=== PATIENT | female | born 1980 | race African-American/Black ===

== ENCOUNTER 2017-04-23 17:10 | Emergency (ER) | payer BC, MEDICAID, OTHER | END 2017-04-23 19:43 | disposition home or self-care (01) | LOC: ERS 17:10 | DX: L72.3 Sebaceous cyst (principal); Z87.891 Personal history of nicotine dependence | CPT/HCPCS: 99283 ==

== ENCOUNTER 2017-12-04 05:34 | Inpatient (IN) | payer OTHER ==
[~2017-12-04 05:34] MED LIST: Bicitra 30 ML UDCUP PO SCH; CEFAZOLIN/Water 2 GM/20 ML SYRINGE SLOW IVP SCH; Ondansetron HCl/PF 4 MG/2 ML Vial IVP PRN; Promethazine HCl 25 MG/ML VIAL IM PRN
[2017-12-04 05:59] VITALS: BMI 42.0
[2017-12-04] MEDS: Lactated Ringer's 1,000 ML IV SCH ×3 (06:20→15:19)
[2017-12-04 06:34] LABS: Hemoglobin 12.4 g/dL (12.0-16.0); Mean Corpuscular HGB CONC 32.9 g/dL (32.0-36.0); Mean Corpuscular Hemoglobin 24.6 pg (27.0-31.0); Mean Corpuscular Volume 74.9 fL (78.0-98.0); Mean Platelet Volume 10.2 fL (7.4-10.4); Platelet Count 190 thou/uL (130-400); RBC Distribution Width 12.9 % (11.5-14.5); Red Blood Cell (RBC) Count 5.05 mill/uL (4.20-5.40); White Blood Cell (WBC) Count 7.6 thou/uL (4.8-10.8)
[2017-12-04] MEDS ORDERED: Fentanyl 100 MCG/2 ML VIAL ONE (07:02)
[2017-12-04] MEDS ORDERED: Oxytocin 10 UNITS/ML VIAL ONE (07:02)
[2017-12-04 07:03] LABS: HBSAg Index 0.22 S/CO (0-0.99); Hep B Surf Ag Non-Reactive S/CO (NonReactive)
[2017-12-04] MEDS ORDERED: Morphine PF 1 MG/ML SYR ONE (07:03)
[2017-12-04] MEDS ORDERED: Lidocaine 1% PF 5 ML VIAL ONE (07:04)
[2017-12-04] MEDS ORDERED: PHENYLEPHRINE-NS 100 MCG/ML 10 ML SYRINGE ONE (07:04)
[2017-12-04] MEDS ORDERED: ePHEDrine/0.9% NaCl/PF SYRINGE 50 mg/10 ml ONE (07:04)
[2017-12-04] MEDS ORDERED: Ketorolac Tromethamine 30 MG/ML VIAL ONE (07:05)
[2017-12-04] MEDS ORDERED: Bupivacaine 0.75% W/DEXTROSE 8.25% 2 ML AMP ONE (07:09)
[2017-12-04 08:11] LABS: Syphilis Antibody Nonreactive (Nonreactive)
--- NOTE | 2017-12-04 08:44 | PDOC.EVN ---
Event Note - Event Note Event Note: CS Assist note (Negative Restorer #2): I arrived medical consultant at 0800 to the L&D unit to find Dr Alexandra (my partner) in the OR in L&D assisting Dr Chang. I scrubbed him out at 0815. [facility] already closed the hysterectomy in one layer. I assisted with hysterotomy oversew until homeostasis observed. I remained until fascial closure. I closed the patient's left fascial angle towrads the midline. Please see OP NOTE by Dr Chang.
[2017-12-04] MEDS ORDERED: Ondansetron HCl/PF 4 MG/2 ML Vial IVP PRN ×2 (08:47→14:48)
[2017-12-04] MEDS ORDERED: Meperidine HCl/PF 25 MG/ML VIAL SLOW IVP PRN (08:47)
[2017-12-04] MEDS ORDERED: HYDROmorphone 2 MG/ML VIAL SLOW IVP PRN (08:47)
[2017-12-04] MEDS ORDERED: Bisacodyl 10 MG SUPP PR PRN (08:50)
[2017-12-04] MEDS ORDERED: HYDROcodone/Acetaminophen 5/325 mg Tablet PO PRN ×2 (08:50)
[2017-12-04] MEDS ORDERED: Adacel (T-DAP) 0.5 ML VIAL IM ONE (08:50)
[2017-12-04] MEDS ORDERED: Misoprostol 200 MCG TAB PR PRN (08:50)
[2017-12-04] MEDS ORDERED: Zolpidem Tartrate 5 MG TAB PO PRN (08:50)
[2017-12-04] MEDS ORDERED: NS / Oxytocin 40 units/1000ml 1,000 ML IV SCH (09:00)
[2017-12-04] MEDS ORDERED: Ketorolac Tromethamine 30 MG/ML VIAL IVP SCH (09:00)
[2017-12-04] MEDS ORDERED: Meperidine HCl/PF 25 MG/ML VIAL ONE (10:18)
[2017-12-04] MEDS ORDERED: Ibuprofen 800 MG TAB PO SCH (14:00)
[2017-12-04] MEDS ORDERED: Promethazine HCl 25 MG SUPP PR PRN (14:48)
[2017-12-04] MEDS ORDERED: diphenhydrAMINE 50 MG/ML VIAL IVP PRN (14:48)
[2017-12-04] MEDS ORDERED: Naloxone HCl 0.4 mg/ml Vial IV PRN (14:48)
[2017-12-04] MEDS ORDERED: Promethazine HCl 25 MG/ML VIAL IM PRN (14:48)
[2017-12-04] MEDS ORDERED: Naloxone HCl 0.4 mg/ml Vial IVP PRN ×2 (14:48)
[2017-12-04] MEDS ORDERED: Eucerin (Mineral Oil/Petrolatum,White) 30 gm Jar TOP PRN (14:48)
[2017-12-04] MEDS ORDERED: Communication Order-Pharmacy FS SCH (15:00)
[2017-12-04] MEDS: Ketorolac Tromethamine 30 MG/ML VIAL IVP PRN (15:14)
[2017-12-04] MEDS: Prenatal Vitamin 1 TAB PO SCH (15:15)
[2017-12-04] MEDS: Simethicone Chewable 80 MG TAB PO PRN (15:16)
[2017-12-04] MEDS: Docusate Calcium (SURFAK) 240 MG CAP PO SCH (15:16)
--- NOTE | 2017-12-04 21:25 | OP ---
DATE OF PROCEDURE: 12/04/2017 PREOPERATIVE DIAGNOSES: 1. A 37-year-old female, G4, P3, 39-40 weeks gestation, prior section. 2. For repeat section. SURGEON: Leslie Chang M.D. [facility] SURGEON: Jhony Alexandra M.D. and assisting by Dr. Doug Pichardo after delivery and hysterotomy closure. PROCEDURES: 1. Repeat low transverse section. 2. Adhesiolysis. ANESTHESIA: Spinal block. QUANTITATIVE BLOOD LOSS: 885 mL FINDINGS: 1. Vigorous female , vertex presentation, clear amniotic fluid noted. weight 7 pounds 2 ounces, Apgars 8 and 9. 2. Clear urine present in Hess catheter post procedure. DISPOSITION: To the recovery room, stable. COUNTS: Correct x2. DESCRIPTION OF OPERATIVE PROCEDURE: The patient previously received informed consent in regard to james rgery. She was taken back to the operating room where she received a spinal block without complicati ons. She was then placed in supine position, prepped and draped in usual sterile fashion. Hess cat heter and PlexiPulses had been placed. At this time, a Pfannenstiel incision was made through the pr evious scar site and was carried down to the fascia. Fascia was nicked in midline. Fascial incision was extended bilaterally using curved Layton scissors. She did have significant scarring from her pre vious 3 sections and sharp dissection of the rectus fascia both superiorly and inferiorly wa s carried out carefully. The rectus belly midline was identified and entry up high towards the umbil icus region was carried out. This incision was then extended via stretching and with a layering Layton scissors. At this time, the Hebert O retractor was placed. The bladder flap was well past the plan owen intended hysterotomy site. Therefore, hysterotomy site was carried out above the previous bladde r flap site. The hysterotomy incision was then extended via finger fractionation. In addition, the bandage scissors increased the size of the hysterotomy incision due to the thickness of the uterine m uscle wall. The baby's amniotic bag was ruptured, clear amniotic fluid was noted. The baby was deli tabatha in the vertex presentation. Mouth and nares were bulb suctioned on the abdomen. Cord was doub ly clamped and cut. The baby was handed to the pediatric nurse practitioner in attendance. Usual co rd blood was obtained. Placenta was then manually extracted. The uterus was then curetted of any re maining placental fragments with dry laparotomy sponge. The hysterotomy edges were grasped with two ring forceps at the angles and then in the midline of the lower inferior edge of the hysterotomy inci hector. Hysterotomy incision was then closed in running locking fashion with Monocryl sutures x2, doub le layer. An additional [id number] suture with 0 chromic was placed at the angle on the right w here the bandage scissors have extended the incision. Hemostasis was achieved. The Hebert O retract or was then removed and the rectus muscle bellies were inspected. Hemostasis confirmed. A fish styl e valve retractor was placed to help improve the operative field site for assisting closure of the fa scia. The fascia was then closed starting from the right angle with 0 PDS suture in running continuo us fashion. Once we got past the midline, the fish retractor was removed and then the fascial incision was then secured and it was oversewed and closed with running 0 PDS suture, which met in the midline and this was then tied securing fascial closure. The subcutaneous tissue was irrigated and noted be hemostatic and was reapproximated with 2-0 chromic suture. The skin was then closed with st aples. Surgery was terminated and no anesthetic or surgical complications occurred.
[2017-12-05] MEDS: Ketorolac Tromethamine 30 MG/ML VIAL IVP PRN ×2 (02:21→09:03)
[2017-12-05] MEDS: Docusate Calcium (SURFAK) 240 MG CAP PO SCH ×3 (02:25→21:06)
[2017-12-05] MEDS: diphenhydrAMINE 25 MG CAP PO PRN (02:34)
[2017-12-05] MEDS ORDERED: HYDROcodone/Acetaminophen 5/325 mg Tablet PO PRN (03:00)
[2017-12-05] MEDS: Simethicone Chewable 80 MG TAB PO PRN (03:02)
[2017-12-05 06:09] LABS: Hemoglobin 10.3 g/dL (12.0-16.0); Mean Corpuscular HGB CONC 33.2 g/dL (32.0-36.0); Mean Corpuscular Volume 75.1 fL (78.0-98.0); Mean Platelet Volume 9.4 fL (7.4-10.4); Platelet Count 157 thou/uL (130-400); RBC Distribution Width 12.7 % (11.5-14.5); Red Blood Cell (RBC) Count 4.11 mill/uL (4.20-5.40)
--- NOTE | 2017-12-05 07:54 | PDOC.PP ---
Post Progress Note Post Day #: 1 PO intake tolerated: yes Flatus: yes Ambulation: yes Vital Signs (12 hours) Temp Pulse Resp BP 12/05/17 04:00 98.5 F 93 20 12/05/17 00:00 98.5 F 93 20 12/04/17 20:00 98.5 F 91 20 109/61 Weight Weight 230 lb - Physical Examination Skin: CS incision dry & intact Result Diagrams: 12/05/17 05:27 Additional Labs: Post Labs Blood Type O POSITIVE 12/04/17 06:21 Hep Bs Antigen Non-Reactive S/CO (NonReactive) 12/04/17 06:21 - Assessment/Plan Post op day 1 from repeat c/s #4.. Hemodynamically stable. Advance activity/ diet. Possible d/c 12/06...Jossie out post op day 7 in my office.
[2017-12-05] MEDS: Prenatal Vitamin 1 TAB PO SCH (09:03)
[2017-12-05] MEDS: HYDROcodone/Acetaminophen 5/325 mg Tablet PO PRN ×2 (10:11→21:07)
[2017-12-05] MEDS: Ibuprofen 800 MG TAB PO SCH ×2 (15:27→21:08)
[2017-12-05] MEDS ORDERED: Ibuprofen 800 MG TAB PO SCH (22:00)
[2017-12-06] MEDS: diphenhydrAMINE 25 MG CAP PO PRN (00:57)
[2017-12-06] MEDS: HYDROcodone/Acetaminophen 5/325 mg Tablet PO PRN (06:05)
[2017-12-06] MEDS: Ibuprofen 800 MG TAB PO SCH ×2 (06:07→13:55)
[2017-12-06] MEDS: Simethicone Chewable 80 MG TAB PO PRN (06:10)
[2017-12-06] MEDS ORDERED: HYDROcodone/Acetaminophen 7.5/325 mg Tablet PO PRN (07:48)
--- NOTE | 2017-12-06 08:00 | PRG ---
DATE OF SERVICE: 12/06/2017. SUBJECTIVE: The patient is postoperative day #2 status post a repeat by her primary physic ana maria, Dr. Leslie Chang. Today, she reports that her pain medications have not been giving her adequ ate control and she feels like she is still having severe pain on her hydrocodone 5 mg to 10 mg q.4 h ours as needed for pain. She otherwise is tolerating p.o., voiding on her own, having decreased loch ia and is ambulating. OBJECTIVE: VITAL SIGNS: Currently, blood pressure is 129/60, temperature 98.6, pulse 97, respiratory rate of 20 . GENERAL: She appears to be in some distress, but not acute. She appears to be alert and oriented, c ooperative and pleasant to interact with. HEENT: Head is normocephalic, atraumatic. ABDOMEN: Fundus is firm, tender. Incision is clean, dry, and intact and soft. EXTREMITIES: Nontender and nonedematous. ASSESSMENT AND PLAN: The patient is a 37-year-old female postop day #2 status post a repeat C-sectio n with less than adequately controlled pain on her current pain regimen. I have increased her hydroc odone to 7.5 and we will see how that manages her pain over the next 24 hours. Anticipate discharge tomorrow.
[2017-12-06 09:04] VITALS: BP 115/71; TEMP 97.8
[2017-12-06] MEDS: Docusate Calcium (SURFAK) 240 MG CAP PO SCH (09:08)
[2017-12-06] MEDS: Prenatal Vitamin 1 TAB PO SCH (09:08)
[2017-12-06] MEDS: HYDROcodone/Acetaminophen 7.5/325 mg Tablet PO PRN ×3 (09:43→17:32)
--- NOTE | 2017-12-06 13:02 | PDOC.PP ---
Post Progress Note Post Day #: 2 PO intake tolerated: yes Flatus: yes Ambulation: yes Vital Signs (12 hours) Temp Pulse Resp BP 12/06/17 09:03 97.8 F 78 20 115/71 12/06/17 08:05 97.8 F 78 20 Weight Weight 230 lb Result Diagrams: 12/05/17 05:27 Additional Labs: Post Labs Blood Type O POSITIVE 12/04/17 06:21 Hep Bs Antigen Non-Reactive S/CO (NonReactive) 12/04/17 06:21 - Assessment/Plan pain under control and desires dc home on norco 7.5
== END 2017-12-06 17:55 | disposition home or self-care (01) | DRG 766 ==
LOC: L&D 05:34 → 3SW 11:23
PROVIDERS: ADMIT Obstetrics & Gynecology; ATTEND Obstetrics & Gynecology
PROC: 10D00Z1 Extraction of Products of Conception, Low, Open Approach (ICD-10-PCS; principal; 2017-12-04)
DX: O34.211 Maternal care for low transverse scar from previous cesarean delivery (principal); O99.62 Diseases of the digestive system complicating childbirth; K66.0 Peritoneal adhesions (postprocedural) (postinfection); Z3A.39 39 weeks gestation of pregnancy; Z37.0 Single live birth
CPT/HCPCS: 36415; 51702; 85027; 86780; 86850; 86900; 86901; 87340; J1200; J1885; J2001; J2175; J2274; J2405; J2590; J3010; J3490

== ENCOUNTER 2017-12-11 18:15 | Emergency (ER) | payer OTHER ==
[2017-12-11 18:46] LABS: #Basophils 0.1 thou/uL (0.0-0.2); #Eosinphils 0.2 thou/uL (0.0-0.7); #Lymphocytes 1.8 thou/uL (1.20-3.40); #Monocytes 0.7 thou/uL (0.11-0.59); #Neutrophils 4.5 thou/uL (1.40-6.50); %Basophils 0.9 % (0.0-1.0); %Eosinophils 3.3 % (0.0-10.0); %Lymphocytes 24.5 % (21.0-51.0); %Monocytes 9.9 % (0.0-10.0); %Neutrophils 61.3 % (42.0-75.0); Hemoglobin 11.4 g/dL (12.0-16.0); Mean Corpuscular HGB CONC 33.9 g/dL (32.0-36.0); Mean Corpuscular Hemoglobin 25.6 pg (27.0-31.0); Mean Corpuscular Volume 75.4 fL (78.0-98.0); Mean Platelet Volume 8.2 fL (7.4-10.4); Platelet Count 319 thou/uL (130-400); RBC Distribution Width 12.3 % (11.5-14.5); Red Blood Cell (RBC) Count 4.47 mill/uL (4.20-5.40); White Blood Cell (WBC) Count 7.4 thou/uL (4.8-10.8)
[2017-12-11] MEDS ORDERED: Metoclopramide HCl 10 MG/2 ML VIAL ONE ×2 (19:06→19:10)
[2017-12-11 19:09] LABS: ALT (SGPT) 42 U/L (8-55); AST (SGOT) 75 U/L (5-34); Albumin 3.5 g/dL (3.5-5.0); Alkaline Phosphatase 90 U/L (40-150); Anion Gap 13 mmol/L (10-20); BUN (Urea Nitrogen) 11 mg/dL (7.0-18.7); Bilirubin, Total 0.3 mg/dL (0.2-1.2); Calc. Creatinine Clearance 0 mL/min (70-130); Calcium 9.1 mg/dL (7.8-10.44); Carbon Dioxide 25 mmol/L (22-29); Chloride 105 mmol/L (98-107); Estimated GFR-MDRD Greater than 90; Globulin 2.7 g/dL (2.4-3.5); Glucose 93 mg/dL (70-105); Protein, Total 6.2 g/dL (6.0-8.3); Sodium 139 mmol/L (136-145); Uric Acid 7.3 mg/dL (2.6-6.0)
--- NOTE | 2017-12-11 19:26 | CT ---
CT BRAIN WITHOUT CONTRAST: 12/11/17 HISTORY: Headache. FINDINGS: No evidence of infarct, hemorrhage, midline shift or abnormal extra=axial fluid collections are seen. the ventricular size is normal and the basilar cisterns patent. The bony calvarium is intact. The vi sualized paranasal sinuses and mastoid air cells are well aerated. IMPRESSION: No CT evidence of acute intracranial process. POS: [facility]
[2017-12-11 20:12] LABS: Bilirubin Negative (Negative); Blood, Urine Small (Negative); Clarity CLEAR (Clear); Glucose, Urine (Dipstick) Negative (Negative); Leukocyte Negative (Negative); Nitrite Negative (Negative); Protein, Urine (Dipstick) Negative (Neg-Trace); Specific Gravity, Urine 1.006 (1.002-1.036)
[2017-12-11 20:14] LABS: Bacteria/HPF None Seen HPF (None Seen); Hyaline Casts/LPF 0-3 HYALINE CAST LPF (0-3 Hyaline); Pathc Cast-AUWi Flag 0.14 (0-2.49); RBC/HPF 0-3 HPF (0-3); Squamous Epithelial 0-3 HPF (0-3); WBC/HPF 0-3 HPF (0-3)
[2017-12-11] MEDS ORDERED: Magnesium Sulfate 2 GM in Sodium Chloride 0.9% 100 ML IVPB SCH (20:30)
[2017-12-11] MEDS ORDERED: NIFEdipine XL 30 MG TAB ONE (21:55)
== END 2017-12-11 22:04 | disposition home or self-care (01) ==
LOC: ERS 18:15
DX: R51 Headache (principal); R74.9 Abnormal serum enzyme level, unspecified; Z87.891 Personal history of nicotine dependence
CPT/HCPCS: 70450; 80053; 81003; 81015; 84550; 85025; 96365; 96366; 96367; J2765; J3475; J7050

== ENCOUNTER 2018-01-21 20:12 | Emergency (ER) | payer OTHER ==
[2018-01-21 21:35] LABS: Bilirubin Negative (Negative); Blood, Urine Negative (Negative); Clarity CLEAR (Clear); Glucose, Urine (Dipstick) Negative (Negative); Leukocyte Negative (Negative); Nitrite Negative (Negative); Protein, Urine (Dipstick) Negative (Neg-Trace); Specific Gravity, Urine 1.021 (1.002-1.036)
[2018-01-21 21:38] LABS: Pregnancy Test - Urine (BHCG) Negative (Negative); Pregu Control Background? CLEAR/WHITE (CLR/WHITE); Pregu Control Bar Appear? YES (CONTROL BAR); Specific Gravity 1.021 (1.002-1.036)
--- NOTE | 2018-01-21 21:39 | RAD ---
THREE VIEWS LUMBOSACRAL SPINE: 01/21/18 COMPARISON: None. HISTORY: Low back injury with low back pain. FINDINGS: There views lumbosacral spine shows normal height and alignment of the vertebral bodies and intervert ebral discs without fracture or subluxation. No degenerative changes are seen. IMPRESSION: No evidence of acute osseous abnormality. POS: [facility]
[2018-01-21] MEDS ORDERED: Ketorolac Tromethamine 30 MG/ML VIAL ONE (22:04)
[2018-01-21] MEDS ORDERED: Acetaminophen 325 MG TAB ONE (22:04)
== END 2018-01-21 22:56 | disposition home or self-care (01) ==
LOC: ERS 20:12
DX: M79.1 Myalgia (principal); I10 Essential (primary) hypertension; Z87.891 Personal history of nicotine dependence; Z79.899 Other long term (current) drug therapy; V43.52XA Car driver injured in collision with other type car in traffic accident, initial encounter
CPT/HCPCS: 72100; 81003; 81025; 96372; J1885